=== PATIENT | male | born 1945 | race Caucasian/White ===

== ENCOUNTER 2024-01-03 09:27 | Emergency (ER) | payer OTHER ==
[~2024-01-03] VITALS: Ht 188 cm; Wt 102.1 kg
[2024-01-03 10:02] LABS: BASOPHILS ABSOLUTE AUTO 0.05 K/mm3 (0.00-0.23); BASOPHILS PERCENT AUTO 1 % (0-2); EOSINOPHILS ABSOLUTE AUTO 0.23 K/mm3 (0.00-0.68); EOSINOPHILS PERCENT AUTO 5 % (0-6); Hematocrit 40.2 % (37.0-53.0); Hemoglobin 13.3 g/dL (13.5-17.5); IMMATURE GRAN ABSOLUTE AUTO 0.01 K/mm3 (0.00-0.10); IMMATURE GRAN PERCENT AUTO 0 % (0-1); LYMPHOCYTES ABSOLUTE AUTO 1.28 K/mm3 (0.84-5.20); LYMPHOCYTES PERCENT AUTO 26 % (21-46); MONOCYTES ABSOLUTE AUTO 0.35 K/mm3 (0.16-1.47); MONOCYTES PERCENT AUTO 7 % (4-13); Mean Corpuscular HGB 29.8 pg (26.0-34.0); Mean Corpuscular HGB Conc 33.1 g/dL (31.5-36.5); Mean Corpuscular Volume 90 fL (80-100); Mean Platelet Volume 11.2 fL (9.1-12.4); NEUTROPHILS ABSOLUTE AUTO 3.02 K/mm3 (1.96-9.15); NEUTROPHILS PERCENT AUTO 61 % (41-73); Platelet Count 115 K/mm3 (150-400); RDW Coefficient Variation 14.5 % (11.7-14.2); RDW Standard Deviation 48.1 fL (35.1-46.3); Red Blood Cell Count 4.47 M/mm3 (4.30-5.90); White Blood Cell Count 4.94 K/mm3 (4.00-11.30)
[2024-01-03] MEDS ORDERED: SERT25 PO (10:30)
[2024-01-03 10:37] LABS: Albumin, Blood 3.8 g/dL (3.4-5.0); Albumin/Globulin Ratio 1.1 (0.8-1.8); Bilirubin, Total 0.7 mg/dL (0.1-1.0); Bun/Creatinine Ratio 33.8 (12.0-20.0); Calcium, Blood 8.8 mg/dL (8.5-10.1); Creatinine, Blood 0.68 mg/dL (0.60-1.20); Globulin, Blood 3.6 g/dL (2.2-4.0); Magnesium, Blood 2.2 mg/dL (1.6-2.4); Potassium, Blood 3.8 mmol/L (3.5-5.5); Total Protein, Blood 7.4 g/dL (6.4-8.2)
[2024-01-03] MEDS ORDERED: ATOR40TA PO (11:19)
[2024-01-03] MEDS ORDERED: Acetaminophen650 M1 PO (11:19)
[2024-01-03] MEDS ORDERED: MEMA10 PO (11:20)
[2024-01-03] MEDS ORDERED: B-12500 MC2 PO (11:20)
[2024-01-03] MEDS ORDERED: LUTEIN20 MG PO (11:20)
[2024-01-03] MEDS ORDERED: [UNRECOGNIZED DRUG - OTHER] PO (11:21)
[2024-01-03] MEDS ORDERED: TAMS.4ER PO (11:22)
[2024-01-03] MEDS ORDERED: Hair, Skin & N1 EACH PO (11:22)
[2024-01-03] MEDS ORDERED: CARBIDOPA-LEVO1 EA19 PO (11:23)
== END 2024-01-03 13:45 | disposition home or self-care (01) ==
LOC: ER 09:27
PROVIDERS: Emergency Medicine
DX: R07.2 Precordial pain (principal)
CPT/HCPCS: 71046; 80053; 83735; 83880; 84484; 85025; 93005; 93010; 99285-25

== ENCOUNTER 2024-03-18 17:53 | Emergency (ER) | payer MEDICARE ==
[~2024-03-18] VITALS: Ht 188 cm; Wt 100.7 kg
[~2024-03-18 17:53] MED LIST: ATOR40TA PO; Acetaminophen650 M1 PO; B-12500 MC2 PO; CARBIDOPA-LEVO1 EA19 PO; Hair, Skin & N1 EACH PO; LUTEIN20 MG PO; MEMA10 PO; SERT25 PO; TAMS.4ER PO; [UNRECOGNIZED DRUG - OTHER] PO
[2024-03-18] MEDS ORDERED: AMOCLA875 PO (18:15)
[2024-03-18] MEDS ORDERED: Amoxicillin/Clavulanate K 875 MG Tab PO ONE (18:15)
== END 2024-03-18 18:32 | disposition home or self-care (01) ==
LOC: ER 17:53
DX: K04.7 Periapical abscess without sinus (principal); Z79.899 Other long term (current) drug therapy
CPT/HCPCS: 99283; A9270

== ENCOUNTER 2024-06-26 18:01 | Emergency (ER) | payer MEDICARE ==
[~2024-06-26] VITALS: Ht 188 cm; Wt 72.6 kg
[~2024-06-26 18:01] MED LIST changes: +AMOCLA875 PO
[2024-06-26 18:46] LABS: BASOPHILS ABSOLUTE AUTO 0.05 K/mm3 (0.00-0.23); BASOPHILS PERCENT AUTO 1 % (0-2); EOSINOPHILS ABSOLUTE AUTO 0.13 K/mm3 (0.00-0.68); EOSINOPHILS PERCENT AUTO 2 % (0-6); Hematocrit 36.2 % (37.0-53.0); Hemoglobin 12.2 g/dL (13.5-17.5); IMMATURE GRAN ABSOLUTE AUTO 0.01 K/mm3 (0.00-0.10); IMMATURE GRAN PERCENT AUTO 0 % (0-1); LYMPHOCYTES ABSOLUTE AUTO 1.13 K/mm3 (0.84-5.20); LYMPHOCYTES PERCENT AUTO 20 % (21-46); MONOCYTES ABSOLUTE AUTO 0.44 K/mm3 (0.16-1.47); MONOCYTES PERCENT AUTO 8 % (4-13); Mean Corpuscular HGB 30.5 pg (26.0-34.0); Mean Corpuscular HGB Conc 33.7 g/dL (31.5-36.5); Mean Corpuscular Volume 91 fL (80-100); Mean Platelet Volume 10.6 fL (9.1-12.4); NEUTROPHILS PERCENT AUTO 68 % (41-73); Platelet Count 140 K/mm3 (150-400); RDW Coefficient Variation 14.4 % (11.7-14.2); RDW Standard Deviation 47.9 fL (35.1-46.3); White Blood Cell Count 5.56 K/mm3 (4.00-11.30)
[2024-06-26 19:01] LABS: Albumin, Blood 3.6 g/dL (3.4-5.0); Albumin/Globulin Ratio 1.2 (0.8-1.8); Bilirubin, Total 0.8 mg/dL (0.1-1.0); Bun/Creatinine Ratio 21.7 (12.0-20.0); Calcium, Blood 8.9 mg/dL (8.5-10.1); Creatinine, Blood 0.78 mg/dL (0.60-1.20); Globulin, Blood 3.1 g/dL (2.2-4.0); Potassium, Blood 3.8 mmol/L (3.5-5.5); Total Protein, Blood 6.7 g/dL (6.4-8.2)
== END 2024-06-26 21:15 | disposition home or self-care (01) ==
LOC: ER 18:01
PROVIDERS: Student in an Organized Health Care Education/Training Program
DX: R07.2 Precordial pain (principal); Z87.19 Personal history of other diseases of the digestive system; Z79.899 Other long term (current) drug therapy
CPT/HCPCS: 71046; 80053; 84484; 85025; 93005; 93010; 99285-25

== ENCOUNTER 2025-06-21 05:11 | Emergency (ER) | payer BC ==
[~2025-06-21] VITALS: Ht 177.8 cm; Wt 74.8 kg
[2025-06-21 05:50] LABS: BASOPHILS ABSOLUTE AUTO 0.04 K/mm3 (0.00-0.23); BASOPHILS PERCENT AUTO 0 % (0-2); EOSINOPHILS ABSOLUTE AUTO 0.07 K/mm3 (0.00-0.68); EOSINOPHILS PERCENT AUTO 1 % (0-6); Hematocrit 39.8 % (37.0-53.0); Hemoglobin 13.1 g/dL (13.5-17.5); IMMATURE GRAN ABSOLUTE AUTO 0.05 K/mm3 (0.00-0.10); IMMATURE GRAN PERCENT AUTO 0 % (0-1); LYMPHOCYTES ABSOLUTE AUTO 1.02 K/mm3 (0.84-5.20); LYMPHOCYTES PERCENT AUTO 9 % (21-46); MONOCYTES ABSOLUTE AUTO 0.52 K/mm3 (0.16-1.47); MONOCYTES PERCENT AUTO 5 % (4-13); Mean Corpuscular HGB Conc 32.9 g/dL (31.5-36.5); Mean Corpuscular Volume 90 fL (80-100); NEUTROPHILS ABSOLUTE AUTO 9.90 K/mm3 (1.96-9.15); NEUTROPHILS PERCENT AUTO 85 % (41-73); NRBC ABSOLUTE 0.00 K/mm3 (0.00-0.02); NRBC Auto 0.0 /100 WBC (0.0-0.2); Platelet Count 146 K/mm3 (150-400); RDW Coefficient Variation 14.2 % (11.7-14.2); RDW Standard Deviation 46.6 fL (35.1-46.3)
[2025-06-21 06:12] LABS: Alanine Aminotransfer (ALT/SGP 17.0 U/L (12-78); Albumin, Blood 4.0 g/dL (3.4-5.0); Albumin/Globulin Ratio 1.1 (0.8-1.8); Anion Gap 7.0 mmol/L (3-11); Aspartate Aminotrans (AST/SGOT 20.0 U/L (12-37); Bilirubin, Total 1.3 mg/dL (0.1-1.0); Blood Urea Nitrogen 18.0 mg/dL (8-24); CO2, Blood 28.0 mmol/L (21-32); Calcium, Blood 9.2 mg/dL (8.5-10.1); Chloride, Blood 104.0 mmol/L (98-108); Creatinine, Blood 0.71 mg/dL (0.60-1.20); Globulin, Blood 3.7 g/dL (2.2-4.0); Glucose, Blood 130.0 mg/dL (70-99); Potassium, Blood 3.9 mmol/L (3.5-5.5); Sodium, Blood 135.0 mmol/L (136-145); Total Protein, Blood 7.7 g/dL (6.4-8.2)
--- NOTE | 2025-06-21 08:10 | NUR ---
CALLED TO EMERGENCY ROOM BY FOR GOALS OF CARE CONVERSATION. PT LYING SUPINE WITH EYES CLOSED. NO S/SX OF DISTRESS NOTED. YONY AT BEDSIDE. YONY REPORTS PT HAS HAD A RAPID PHYSICAL DECLINE OVER THE LAST TWO MONTHS. APX 17 POUND WT LOSS IN THREE MONTHS. SLEEP IN THE LAST COUPLE OF WEEKS HAS INCREASED TO APX 18-20 HRS/DAY. MULTIPULE FALLS IN THE LAST COUPLE OF DAYS WELL. ORAL INTAKE DECREASED. YESTERDAY, 5 BITES OF MAC AND CHEESE AND LESS THAN 10 OZ OF WATER. PLAN IS FOR PT TO D/C HOME THIS MORNING WITH [facility]. NEW POLST COMPLETED TO REFLECT DNR/SKELP PROCESSOR.
== END 2025-06-21 11:05 | disposition home or self-care (01) ==
LOC: ER 05:11
PROVIDERS: Emergency Medicine
DX: F03.90 Unspecified dementia, unspecified severity, without behavioral disturbance, psychotic disturbance, mood disturbance, and anxiety (principal); E86.0 Dehydration; K21.9 Gastro-esophageal reflux disease without esophagitis; E78.5 Hyperlipidemia, unspecified; Z51.5 Encounter for palliative care; Z79.899 Other long term (current) drug therapy
CPT/HCPCS: 70450; 80053; 85025; 93005; 93010; 96360; 99285-25; J7120